=== PATIENT | male | born 1945 | race Caucasian/White ===

== ENCOUNTER 2018-02-21 20:48 | Emergency (ER) | payer OTHER ==
[2018-02-21] MEDS: methylPREDNISolone INJ 125 MG/2 ML VIAL (J2930) IM (21:57)
[2018-02-21] MEDS: diphenhydrAMINE 50 MG CAP PO (21:57)
== END 2018-02-21 23:31 | disposition home or self-care (01) ==
LOC: M ED 20:48
DX: T63.441A Toxic effect of venom of bees, accidental (unintentional), initial encounter (principal); X58.XXXA Exposure to other specified factors, initial encounter; Y92.89 Other specified places as the place of occurrence of the external cause; Z91.030 Bee allergy status; Z88.8 Allergy status to other drugs, medicaments and biological substances; Z79.899 Other long term (current) drug therapy; Z79.82 Long term (current) use of aspirin
CPT/HCPCS: J2930

== ENCOUNTER 2021-02-23 12:36 | Emergency (ER) | payer MEDICARE, OTHER ==
[~2021-02-23] VITALS: Ht 162.6 cm; Wt 95.5 kg
[~2021-02-23 12:36] MED LIST: ASPI81TA26 PO; ATEN25TA PO; B COCAP4 PO; COLE625TAB PO; FISH1000 PO; FURO20TA2 PO; GLUC15002 PO; LISI10TA22 PO; NATU400T PO; NIAS500T23 PO; PRED20TA PO; SILD100T PO
[2021-02-23] MEDS ORDERED: ASPI-1 PO (12:54)
[2021-02-23] MEDS ORDERED: ceFAZolin SOD 2 GM in IV 1 EA IV ONE (15:40)
[2021-02-23 16:07] LABS: BASO # 0.1 10^3/uL (0.0-0.2); BASO % 1.1 % (0.0-1.0); EOS # 0.2 10^3/uL (0.0-0.5); EOS % 2.8 % (0.0-3.0); HEMATOCRIT 40.8 % (42.0-52.0); HEMOGLOBIN 13.8 g/dl (13.5-17.5); LYMPH # 1.6 10^3/uL (1.5-5.0); LYMPH % 18.2 % (24.0-44.0); MEAN CORPUSCULAR HEMOGLOBIN 31.8 pg (27.0-33.0); MEAN CORPUSCULAR HGB CONC 33.8 g/dl (32.0-36.5); MONO # 0.8 10^3/uL (0.0-0.8); MONO % 9.2 % (2.0-8.0); NEUTROPHILS # 5.8 10^3/uL (1.5-8.5); NEUTROPHILS % 68.2 % (36.0-66.0); PLATELET COUNT, AUTOMATED 349 10^3/uL (150-450); RED BLOOD COUNT 4.34 10^6/uL (4.30-6.10); WHITE BLOOD COUNT 8.6 10^3/uL (4.0-10.0)
[2021-02-23 16:31] LABS: BLOOD UREA NITROGEN 22 MG/DL (7-18); CARBON DIOXIDE LEVEL 26 MEQ/L (21-32); CHLORIDE LEVEL 104 MEQ/L (98-107); CREATININE FOR GFR 0.84 MG/DL (0.70-1.30); GLOMERULAR FILTRATION RATE > 60.0 (>42); GLUCOSE, FASTING 88 MG/DL (70-100); POTASSIUM SERUM 4.5 MEQ/L (3.5-5.1); SODIUM LEVEL 138 MEQ/L (136-145)
[2021-02-23] MEDS ORDERED: CEPH500C PO (16:41)
[2021-02-23 16:57] VITALS: BP 159/81
== END 2021-02-23 17:10 | disposition home or self-care (01) ==
LOC: M ED 12:36
DX: Z48.00 Encounter for change or removal of nonsurgical wound dressing (principal); L03.115 Cellulitis of right lower limb; Z79.899 Other long term (current) drug therapy; Z88.8 Allergy status to other drugs, medicaments and biological substances
CPT/HCPCS: 36415; 80048; 85025; 87040; 96365; 99283; J0690